=== PATIENT | male | born 1970 | race Caucasian/White ===

== ENCOUNTER 2022-06-06 15:25 | Emergency (ER) | payer OTHER, SELFPAY ==
--- NOTE | ~2022-06-06 | XR_ITS ---
XR forearm RT 2V DATE: 06/06/2022 15:48 INDICATION: Proximal medial lower arm pain following wrestling TECHNIQUE: AP and lateral views COMPARISON: None FINDINGS: No recent fracture or dislocation, periosteal reaction or bone destruction. Normal alignmen t at the elbow and wrist joints. Old fracture deformity of the right fifth metacarpal bone and proximal phalanx of the right fifth dig it. IMPRESSION: Old right fifth metacarpal and proximal phalanx fractures Reviewed, dictated and finalized at location B. RVISING NURSE
--- NOTE | 2022-06-06 15:26 | ED.UPPEXIN ---
HPI - Extremity Injury (Upper) General Chief Complaint: Extremity Injury, Upper Stated Complaint: Right arm injury Time Seen by Provider: 06/06/22 15:26 Source: patient Mode of arrival: ambulatory Limitations: no limitations History of Present Illness HPI narrative: Danilo is a 52-year-old male patient presenting to clinic today with complaints of right arm injury/pain. He reports he was arm wrestling 2 nights ago and felt a pop and a snap in his right arm. Has swelling and bruising to his proximal volar lateral forearm Related Data Home Medications Medication Instructions Recorded Confirmed No Home Medications 06/06/22 06/06/22 Allergies Allergy/AdvReac Type Severity Reaction Status Date / Time ranitidine [From Zantac] Allergy Intermediate Hives Verified 06/06/22 15:40 Review of Systems Review of Systems: Pertinent positives per HPI. Patient denies any fever, chills, rash, headache, visual changes, dizziness, cough, runny nose, sore throat, shortness of breath, chest pain, palpitations, nausea, vomiting, diarrhea, constipation, abdominal pain, or any urinary issues. PMFSH Comments At the time of my signature, I reviewed and agree with the nursing past medical, surgical, social, and family history. There is no relevant family history pertinent to the patient complaint. Exam Narrative: General: Well-developed, well nourished, in no apparent distress Head: Normocephalic, atraumatic. Cardio: Regular rate and rhythm, s1 and s2 normal, no murmur appreciated. Resp: Clear to auscultation bilaterally, no rhonchi, rales, wheezing or rubs. Musculoskeletal: No deformity, swelling and bruising noted to the right lateral volar aspect of forearm, tender to palpation over this area, pain against resistance with flexion of the biceps over the right lateral forearm, pain with supination and pronation of the right forearm against resistance, grossly normal range of motion, peripheral pulse strong, has full range of motion to his right wrist and fingers, no distal edema, no cyanosis, normal gait and station Course Course Emergency Course: Portions of this record may have been created with voice recognition software. Level of Care: Express Care Visit Vital Signs Vital signs: Vital signs reviewed MDM - Extremity Injury (Upper) MDM Narrative Medical decision making narrative: At the time of visit patient is resting comfortably on exam table. X-ray was performed and is negative for any fracture or malalignment of the right forearm. I suspect the patient has a muscular/possible tendon injury to the right forearm-muscle groups-- including- pronator teres, flexor carpi radialis, flexor carpi ulnaris, and palmaris longus musculature. Is able to flex arm with pain so I do not feel as though he has a full tear of the tendon or musculature. Differential Diagnosis Differential diagnosis: Likely other (Muscle tear, tendon tear, tendon inflammation, muscle strain, hematoma, ulnar/radial fracture) Imaging Data Radiologist's impression: Close Forearm X-Ray (Signed) Ronald Castillo - 06/06/22 Launch?[facility] [place] [address] XRay Report Signed Patient: Danilo Escoto : 1970 MR#: [id number] Age/Sex: 52 / M Acct:[id number] Loc: [facility]? ? ADM Date: 06/06/22Attending Dr: Ordering Physician: Josef Rogel APRN Date of Service: 06/06/22 Procedure(s): XR forearm RT 2V Accession Number(s): [id number] cc: Josef Rogel APRN; Yobani Knight MD~ XR forearm RT 2V DATE: 06/06/2022 15:48 INDICATION: Proximal medial lower arm pain following wrestling? TECHNIQUE: AP and lateral views? COMPARISON: None? FINDINGS: No recent fracture or dislocation, periosteal reaction or bone destruction. Normal alignment at the elbow and wrist joints. Old fracture deformity of the right fifth metacarpal sandro
[2022-06-06 15:33] VITALS: BP 148/90; PULSE 100; RESP 16; TEMP 36.6; O2SAT 96
== END 2022-06-06 16:20 | disposition home or self-care (01) ==
PROVIDERS: Emergency Provider Nurse Practitioner Family; PCP Emergency Medicine
DX: M79.631 Pain in right forearm (principal)
CPT/HCPCS: 73090; 99213; A4565; G0463

== ENCOUNTER 2025-03-10 12:22 | Emergency (ER) | payer OTHER, SELFPAY ==
[2025-03-10 12:25] VITALS: BP 170/96; PULSE 85; RESP 16; TEMP 36.6; O2SAT 98
--- NOTE | 2025-03-10 13:17 | ED.SKABFB ---
HPI - Skin/Abscess/Foreign Bdy General Chief complaint: Skin/Abscess/Foreign Body Stated complaint: right chin swelling Time Seen by Provider: 03/10/25 13:00 Source: patient and RN notes reviewed Mode of arrival: ambulatory Limitations: no limitations History of Present Illness HPI narrative: 55-year-old male patient presents Express Care complaining of redness and swelling near his right side of his chin. Patient reports he was pick in we thought was a pimple yesterday and reported having drainage coming from it as well. Since then the patient reports increased redness and swelling. Patient has any fevers, body aches, chills, dysphagia, difficulty breathing, or any other symptoms. Patient reports a history of MRSA. She has not tried any [id number] to help with symptoms. Related Data Allergies Allergy/AdvReac Type Severity Reaction Status Date / Time ranitidine (From Zantac) Allergy Intermediate Hives Verified 03/10/25 12:29 Review of Systems Review of Systems: CONSTITUTIONAL: Denies fever, chills, or sweats. EYES: Denies visual changes, redness, or discharge. ENT: Denies rhinorrhea, congestion, sore throat, or otalgia. CARDIOVASCULAR: Denies chest pain, palpitations, or edema. RESPIRATORY: Denies cough or dyspnea. GASTROINTESTINAL: Denies abdominal pain, nausea, vomiting, or diarrhea. GENITOURINARY: Denies dysuria or hematuria. SKIN: Denies rash or itching. Positive for wound. MUSCULOSKELETAL: Denies back pain, joint pain, or myalgia. NEUROLOGIC: Denies headache, numbness, or weakness. PSYCHIATRIC: Denies anxiety or depression. All other systems reviewed are negative, except as documented in HPI. PMFSH Comments At the time of my signature, I reviewed and agree with the nursing past medical, surgical, social, and family history. There is no relevant family history pertinent to the patient complaint. Exam Narrative: GENERAL: This is a well-nourished, well-developed adult, in no apparent distress. They are non ill-appearing, nontoxic appearing. HEAD: normocephalic, atraumatic. EYES: Sclera clear/white. Conjunctiva normal. Vision is grossly intact. Extraocular movements intact EARS: External ears normal, Hearing grossly intact. NOSE: External nose normal THROAT: Mucous membranes moist, NECK: Neck supple, non-tender without lymphadenopathy, masses or thyromegaly. CARDIOVASCULAR: Regular rate and rhythm RESPIRATORY: Respiratory rate normal, respiratory effort nonlabored, no respiratory distress SKIN: Face: Erythematous papule to the right lower face near the angle of the jaw proximal to the chin. It is scabbed, no exudate. It is measuring approximately 1 1.5 cm x 2 cm. Is fluctuance, no induration. Is not hot to touch, mildly tender to palpate. NEURO: awake, alert, and oriented to person, place and time. There were no obvious focal neurologic abnormalities. EXTREMITIES: No joint tenderness, effusion, or edema noted. BACK: Nontender without deformity. No CVA tenderness. Course Course Level of Care: Express Care Visit Vital Signs Vital signs: Vital Signs Temperature 97.9 F 03/10/25 12: Pulse Rate 85 03/10/25 12: Respiratory Rate 16 03/10/25 12:25 Blood Pressure 170/96 H 03/10/25 12:25 Pulse Oximetry 98 03/10/25 12:25 Oxygen Delivery Room Air 03/10/25 12:25 Temperature 97.9 F 03/10/25 12:25 Pulse Rate 85 03/10/25 12:25 Respiratory Rate 16 03/10/25 12:25 Blood Pressure 170/96 H 03/10/25 12:25 Pulse Oximetry 98 03/10/25 12:25 Oxygen Delivery Room Air 03/10/25 12:25 MDM MDM Narrative Medical decision making narrative: Appears patient has folliculitis, possible abscess, is small on presentation given its location on the face like to try antibiotic therapy prior to incision and drainage for cosmetic reasons. Patient does have a history of MRSA. Will treat with doxycycline, will also give mupirocin ointment to apply topically. Advised patient if symptoms worsen especially developed worsening redness, swelling, pain, breathing problems, or problems swallowing at any point to return to the ER. Discussed physical exam findings. Advised supportive measures and signs/symptoms to go to the ER. Pt is appropriate for outpt treatment and f/u. Differential Diagnosis Differential Diagnosis: Cellulitis, facial abscess, folliculitis Critical Care Time Critical Care Time Critical Care Time: No Discharge Plan Discharge Clinical Impression: Folliculitis barbae Patient Disposition: Home Condition: Stable Instructions: Antibiotic Form, Folliculitis (ED) Additional Instructions: Take doxycycline as directed. Apply mupirocin to the affected area as directed. Warm compresses few times a day 15-20 minutes at a time to promote drainage. Wash the skin daily with mild soap and water. Avoid picking or scratching at the area you may make the infection worse. Follow-up with PCP in 3-5 days. If you develop worsening redness, swelling, pain, fevers, difficulty breathing, difficulty swallowing, or any serious concerns please go to the ER immediately. Patient Language: Greenlandic Prescriptions: New doxycycline monohydrate 100 mg capsule 100 mg PO BID 7 Days Qty: 14 0RF mupirocin calcium 2 % cream 1 applic topical BID 7 Days Qty: 30 0RF Follow-up/Referrals: PHYSICIAN,JEWELRY DEPARTMENT SUPERVISOR [Primary Care Provider, Internal Medicine] Time of Disposition: 13:10
== END 2025-03-10 13:16 | disposition home or self-care (01) ==
DX: L73.1 Pseudofolliculitis barbae (principal); Z86.14 Personal history of Methicillin resistant Staphylococcus aureus infection
CPT/HCPCS: 99213; G0463